=== PATIENT | female | born 1995 | race Two or more races ===

== ENCOUNTER 2017-06-10 19:03 | Emergency (ER) | payer SELFPAY ==
[~2017-06-10] VITALS: Ht 162.6 cm; Wt 56.2 kg
[2017-06-10] MEDS ORDERED: ACETAMINOPHEN ES 500 MG TABLET ONE (19:28)
[2017-06-10] MEDS ORDERED: ACETAMINOPHEN ES 500 MG TABLET PO ONE (19:30)
[2017-06-10] MEDS ORDERED: LORAZEPAM 1 MG TABLET ONE (19:56)
[2017-06-10] MEDS ORDERED: LORAZEPAM 1 MG TABLET PO ONE (20:00)
[2017-06-10 20:03] VITALS: BP 124/75
== END 2017-06-10 20:08 | disposition home or self-care (01) ==
LOC: ER 19:04
DX: S60.211A Contusion of right wrist, initial encounter (principal); S50.11XA Contusion of right forearm, initial encounter; V43.52XA Car driver injured in collision with other type car in traffic accident, initial encounter; Y93.89 Activity, other specified; Y92.89 Other specified places as the place of occurrence of the external cause; Y99.9 Unspecified external cause status
CPT/HCPCS: 73110; A4606; Z7610